=== PATIENT | male | born 1990 | race Caucasian/White ===

== ENCOUNTER 2019-10-06 02:51 | Emergency (ER) | payer OTHER ==
[~2019-10-06] VITALS: Ht 167.6 cm; Wt 71.2 kg
[~2019-10-06 02:51] MED LIST: BACTRIM DS TAB1 EACH PO; ERYTHROMYCIN E3.5 G3 OPHTHALMIC; KEFLEX500 MG PO; NORCO 5-325 TA1 EACH PO
[2019-10-06] MEDS ORDERED: BACTRIM 400-801 EACH PO (03:06)
[2019-10-06 03:38] LABS: ABSOLUTE EOSINOPHILS 0.1 thou/uL (0.0-0.7); ABSOLUTE LYMPHOCYTES 1.7 thou/uL (0.8-5.3); ABSOLUTE MONOCYTES 0.8 thou/uL (0.0-1.2); BASOPHILS 0.3 %; EOSINOPHILS 0.6 %; HEMATOCRIT 43.1 % (42.0-52.0); HEMOGLOBIN 15.1 gm/dL (14.0-18.0); LYMPHOCYTES 14.9 %; MCH 30.1 pg (26.0-34.0); MCHC 35.1 g/dL (28.0-37.0); MCV 85.7 fL (80.0-100.0); MONOCYTES 6.7 %; MPV 10.4 fl. (7.2-11.1); NUCLEATED RBCS 0 /100WBC; PLATELET COUNT* 171 thou/uL (150-400); POLYS 77.5 %; RBC 5.03 mil/uL (4.50-6.00); RDW-CV 13.3 % (10.5-14.5); WBC 11.6 thou/uL (4.0-11.0)
[2019-10-06 03:56] LABS: CALCIUM 8.1 mg/dL (8.5-10.1); CREATININE 1.2 mg/dL (0.6-1.3)
[2019-10-06 04:01] LABS: ALBUMIN 3.3 g/dL (3.4-5.0); TOTAL BILIRUBIN 0.5 mg/dL (<0.1-1.0); TOTAL PROTEIN 7.2 g/dL (6.4-8.2)
[2019-10-06] MEDS ORDERED: CLEOCIN HCL300 MG PO (07:00)
[2019-10-06] MEDS ORDERED: HYDROCODON-ACE1 EAC8 PO (07:00)
[2019-10-06 07:13] VITALS: BP 115/65
== END 2019-10-06 07:13 | disposition home or self-care (01) ==
LOC: M.ERS 02:51
PROVIDERS: Emergency Medicine
DX: L03.211 Cellulitis of face (principal); F17.210 Nicotine dependence, cigarettes, uncomplicated

== ENCOUNTER → 2020-08-02 | Outpatient (CLI) | payer OTHER ==
[~2020-08-02] MED LIST changes: +BACTRIM 400-801 EACH PO; +CLEOCIN HCL300 MG PO; +HYDROCODON-ACE1 EAC8 PO
== END ==
LOC: M.ULTRA 15:36
PROVIDERS: ATTEND Specialist
DX: R19.09 Other intra-abdominal and pelvic swelling, mass and lump (principal)